=== PATIENT | female | born 1970 | race African-American/Black ===

== ENCOUNTER 2021-07-19 07:58 | Day surgery (SDC) | payer OTHER ==
[2021-07-19] MEDS ORDERED: MIDAZOLAM HCL 2 MG/2 ML INJ ONE (08:29)
[2021-07-19] MEDS ORDERED: FENTANYL CITR 100 MCG/2 ML ONE (08:29)
[2021-07-19] MEDS ORDERED: propofoL 200 MG/20 ML VIAL IV ONE ×2 (08:29→09:48)
[2021-07-19] MEDS ORDERED: LIDOCAINE 1% MPF 5 ML VIAL ONE (08:29)
[2021-07-19] MEDS ORDERED: BUPIVACAINE 0.5% PF 10 ML VIAL ONE ×2 (08:30→08:40)
[2021-07-19 08:46] LABS: Absolute Lymphocytes (CBC) 1.7 K/uL (0.7-4.9); Basophils % 0.5 % (0-1.3); Hematocrit 38.9 % (36.0-45.0); Lymphocytes % 27.4 % (15.3-44.8); MPV 9.2 fL (7.6-11.3); RBC Red Blood Cell Count 4.67 M/uL (3.86-4.86)
[2021-07-19 08:51] LABS: Potassium 4.1 mmol/L (3.5-5.1)
[2021-07-19 08:59] LABS: Specific Gravity 1.015 (1.005-1.030)
[2021-07-19] MEDS ORDERED: Ringers Lactate 1,000 ML IV ONE (09:00)
--- NOTE | 2021-07-19 09:25 | RAD REPORT ---
EXAM DESCRIPTION: RAD - Chest Pa And Lat (2 Views) - 07/19/2021 8:50 am CLINICAL HISTORY: STAT, SAME DAY SURGERY, BED 7 Chest pain. COMPARISON: CHEST PA AND LAT 2 VIEW dated 05/06/2014; CHEST SINGLE VIEW dated 05/16/2012 FINDINGS: Small benign calcified granulomas in the left lung. The lungs are otherwise clear. The hea rt is normal in size. No displaced fractures. IMPRESSION: No acute or concerning finding suspected.
[2021-07-19] MEDS ORDERED: CEFAZOLIN SODIUM 1 GM/VIAL ONE (09:54)
[2021-07-19] MEDS ORDERED: NS 0.9% VIAL 10 ML ONE (09:54)
[2021-07-19] MEDS ORDERED: KETOROLAC 30 MG/ML INJ ONE (09:57)
[2021-07-19] MEDS ORDERED: dexAMETHasone 10 MG/ML VIAL ONE (09:57)
[2021-07-19] MEDS ORDERED: ONDANSETRON 4 MG/2 ML VIAL ONE (09:58)
--- NOTE | 2021-07-19 10:08 | P.BOP ---
Preoperative diagnosis: Infected left axillary mass 3x3cm Postoperative diagnosis: same Primary procedure: Excisional biopsy Infected left axillary mass 3x3cm Secondary procedure: with abscess drainage Estimated blood loss: <10cc Specimen: mass Findings: abscess Anesthesia: General Complications: None Transferred to: Recovery Room Condition: Good
[2021-07-19 10:19] VITALS: O2SAT 100
[2021-07-19 11:05] VITALS: BP 128/78; TEMP 97.7
[2021-07-19] MEDS ORDERED: TRAMADOL 37.5mg/APAP 325mg PER TAB ONE (11:16)
--- NOTE | 2021-07-26 11:03 | OP ---
Date of Procedure: 07/19/2021 Surgeon: Ignacio Lehman MD Preoperative Diagnosis: Infected left axillary subcutaneous mass 3 x 3 cm Procedure Performed: Excisional biopsy of infected left axillary mass 3 x 3 cm with abscess drainage . Findings: Mass with abscess. Anesthesia: General plus local. Estimated Blood Loss: Less than 10 cc. Complications: None. Indication: This is a case of a female, who comes to us with a tender mass on the axillary region. Fully explained the benefits, alternatives, and risks of excisional biopsy of that subcutaneous mass now with abscess present to have cellulitis, have purulent discharge. So the benefits, alternatives, and risks fully explained which include, but not limited to infection, bleeding, damage to adjacent structures, anesthesia complication, recurrence, [place] and even . She also understands this may no t relieve her symptoms. She might need more than one surgical intervention and she will require woun d care. She understood, signed a consent. The area of concern was marked by me and the patient in h olding room. Procedure In Detail: The patient was brought to the operating room, placed in supine position. Anes thesia was done without complication. Axillary area was prepped and draped in a sterile fashion. A time-out was called. Incision was made in that area to remove the mass and deep to that mass have an abscess present. The mass was removed, sent for biopsy. Cultures were obtained. Area was irrigate d. Hemostasis obtained and the area was covered with local anesthetic and packed with dry. The liam ent tolerated the procedure well. Patient sent to Recovery in stable condition. Discharge Summary: Diagnosis: Cellulitis abscess with infected axillary mass. Procedure: Excisional biopsy of infected axillary mass with abscess and drainage. Disposition: Home. Activity: As tolerated. No heavy lifting. Plan: Follow up in my office in one week. Call for appointment [phone]. Wet-to-dry daily. Medications: See orders. HM/MODL Voice ID: [id number] Report ID: [id number]
== END 2021-07-19 12:35 | disposition home or self-care (01) ==
LOC: OR 07:58
PROVIDERS: ATTEND Surgery
PROC: 0JBF0ZZ Excision of Left Upper Arm Subcutaneous Tissue and Fascia, Open Approach (ICD-10-PCS; principal; 2021-07-19 09:00)
DX: L72.0 Epidermal cyst (principal); Z20.822 Contact with and (suspected) exposure to COVID-19
CPT/HCPCS: 93005; 87070; 85025; 80048; 36415; 87205; 81025; 88304; 87075; 87077; 87186; 71046; 11404; U0003; J2704 ×2; J2250; J3010; J1100; J7120; J2405; J0690